=== PATIENT | male | born 1975 | race Caucasian/White ===

== ENCOUNTER 2020-08-07 23:09 | Emergency (ER) | payer MEDICAID ==
[~2020-08-07] VITALS: Ht 170.2 cm; Wt 93.9 kg
[2020-08-07 23:46] LABS: Basophils # (auto) 0.1 10 ^3/uL (0-0.2); Eosinophils # (auto) 0.1 10 ^3/uL (0-0.8); Eosinophils % (auto) 1.6 % (0.0-7.0); Hematocrit 43.5 % (41.0-53.0); Hemoglobin 15.4 g/dL (13.5-17.5); Lymphocytes # (auto) 2.8 10 ^3/uL (0.4-5.4); Lymphocytes % (auto) 32.1 % (10.0-50.0); Mean Corpuscular Hgb Conc. 35.4 g/dL (32.0-36.0); Mean Corpuscular Volume 87.7 fL (80.0-100.0); Monocytes # (auto) 0.6 10 ^3/uL (0-1.3); Monocytes % (auto) 7.3 % (0.0-12.0); Neutrophils # (auto) 5.1 10 ^3/uL (1.6-8.6); Nucleated Red Blood Cells % 0.1 %; Platelet Count (auto) 225 10^3/uL (140-450); Red Blood Cells 4.96 10^6/uL (4.5-5.90); Red Cell Distribution Width 13.2 % (11.8-14.3); White Blood Cell 8.8 10^3/uL (4.4-10.8)
[2020-08-08 00:04] LABS: Alanine Aminotransferase 43 U/L (16-61); Aspartate Aminotransferase 18 U/L (15-37); GFR African American 96 mL/min; GFR Non-African American 79 mL/min; Salicylate 2.2 mg/dL (2.8-20.0)
[2020-08-08 00:05] LABS: Acetaminophen < 2.0 ug/mL (10-30)
[2020-08-08 00:06] LABS: Alkaline Phosphatase 59 U/L (45-117); Anion Gap 11 (5-15); BUN/Creatinine Ratio 18.7; Bilirubin, Total 0.2 mg/dL (0.2-1.0); Blood Urea Nitrogen 20 mg/dL (7-18); Calcium 8.5 mg/dL (8.5-10.1); Carbon Dioxide 25 mmol/L (21-32); Chloride 103 mmol/L (98-107); Glucose 114 mg/dL (74-106); Potassium 3.5 mmol/L (3.5-5.1); Sodium 139 mmol/L (136-145); Total Protein 6.8 g/dL (6.4-8.2)
[2020-08-08 00:07] LABS: Albumin 3.4 g/dL (3.4-5.0); Blood Alcohol < 3.0 mg/dL (0-5)
[2020-08-08 01:02] LABS: Urine Bacteria FEW /hpf (None Seen); Urine Blood 1+ /uL (Negative); Urine Hyaline Cast FEW /lpf (0 - 2); Urine Mucus FEW (None Seen); Urine Specific Gravity 1.027 (1.001-1.035); Urine WBC 15 /hpf (0 - 3)
[2020-08-08 01:12] LABS: Alcohol, Urine < 3.0 mg/dL (0-10); Amphetamine Screen, Urine NEGATIVE (NEGATIVE); Barbiturate Scree,Urine NEGATIVE (NEGATIVE); Benzodiazephine Screen, Urine NEGATIVE (NEGATIVE); Cannabinoid Screen, Urine NEGATIVE (NEGATIVE); Cocaine Screen, Urine NEGATIVE (NEGATIVE); Opiate Scree,Urine NEGATIVE (NEGATIVE); Phencyclidine Screen, Urine NEGATIVE (NEGATIVE)
[2020-08-08 09:00] VITALS: BP 122/80
== END 2020-08-08 09:48 | disposition home or self-care (01) ==
LOC: ER 23:09 → EDBD 23:09 → ER 08-08 09:48
DX: R45.851 Suicidal ideations (principal); N39.0 Urinary tract infection, site not specified; F31.9 Bipolar disorder, unspecified; E78.00 Pure hypercholesterolemia, unspecified; E11.9 Type 2 diabetes mellitus without complications
CPT/HCPCS: 36415; 80053; 80307; 80320; 80329; 81001; 85025; 85049

== ENCOUNTER 2020-12-14 00:03 | Emergency (ER) | payer MEDICAID ==
[~2020-12-14] VITALS: Ht 162.6 cm; Wt 104.3 kg
[2020-12-14 01:24] LABS: Alcohol, Urine < 3.0 mg/dL (0-10); Amphetamine Screen, Urine NEGATIVE (NEGATIVE); Barbiturate Scree,Urine NEGATIVE (NEGATIVE); Benzodiazephine Screen, Urine NEGATIVE (NEGATIVE); Cannabinoid Screen, Urine POSITIVE (NEGATIVE); Cocaine Screen, Urine NEGATIVE (NEGATIVE); Opiate Scree,Urine NEGATIVE (NEGATIVE); Phencyclidine Screen, Urine NEGATIVE (NEGATIVE)
[2020-12-14 03:52] LABS: Basophils # (auto) 0.1 10 ^3/uL (0-0.2); Basophils % (auto) 0.8 % (0.0-2.0); Eosinophils # (auto) 0.1 10 ^3/uL (0-0.8); Eosinophils % (auto) 1.5 % (0.0-7.0); Hematocrit 44.5 % (41.0-53.0); Hemoglobin 15.3 g/dL (13.5-17.5); Lymphocytes # (auto) 3.6 10 ^3/uL (0.4-5.4); Lymphocytes % (auto) 44.2 % (10.0-50.0); Mean Corpuscular Hemoglobin 30.5 pg (28.0-32.0); Mean Corpuscular Hgb Conc. 34.5 g/dL (32.0-36.0); Mean Corpuscular Volume 88.3 fL (80.0-100.0); Monocytes # (auto) 0.7 10 ^3/uL (0-1.3); Monocytes % (auto) 8.9 % (0.0-12.0); Neutrophils # (auto) 3.6 10 ^3/uL (1.6-8.6); Neutrophils % (auto) 44.6 % (37.0-80.0); Nucleated Red Blood Cells % 0.8 %; Red Blood Cells 5.03 10^6/uL (4.5-5.90); Red Cell Distribution Width 12.9 % (11.8-14.3); White Blood Cell 8.2 10^3/uL (4.4-10.8)
[2020-12-14 04:10] LABS: Anion Gap 10 (5-15); BUN/Creatinine Ratio 19.8; Blood Alcohol < 3.0 mg/dL (0-5); Blood Urea Nitrogen 24 mg/dL (7-18); Calcium 8.8 mg/dL (8.5-10.1); Carbon Dioxide 25 mmol/L (21-32); Chloride 99 mmol/L (98-107); GFR African American 83 mL/min; GFR Non-African American 68 mL/min; Glucose 103 mg/dL (74-106); Potassium 3.5 mmol/L (3.5-5.1); Sodium 134 mmol/L (136-145)
[2020-12-14 09:35] VITALS: BP 128/72
== END 2020-12-14 10:14 | disposition home or self-care (01) ==
LOC: EDBD 00:03 → ER 00:03
DX: R45.851 Suicidal ideations (principal); F32.9 Major depressive disorder, single episode, unspecified; F41.9 Anxiety disorder, unspecified; E78.5 Hyperlipidemia, unspecified; E11.9 Type 2 diabetes mellitus without complications
CPT/HCPCS: 36415; 71045; 80048; 80307; 80320; 85025

== ENCOUNTER 2021-01-05 23:04 | Emergency (ER) | payer MEDICAID ==
[~2021-01-05] VITALS: Ht 170.2 cm; Wt 86.2 kg
[2021-01-06 01:31] LABS: Acetaminophen < 2.0 ug/mL (10-30); Albumin 3.4 g/dL (3.4-5.0); Anion Gap 10 (5-15); BUN/Creatinine Ratio 21.2; Blood Alcohol < 3.0 mg/dL (0-5); Blood Urea Nitrogen 18 mg/dL (7-18); Carbon Dioxide 27 mmol/L (21-32); Chloride 101 mmol/L (98-107); GFR African American 124 mL/min; GFR Non-African American 103 mL/min; Glucose 158 mg/dL (74-106); Potassium 3.6 mmol/L (3.5-5.1); Salicylate < 1.7 mg/dL (2.8-20.0); Sodium 138 mmol/L (136-145)
[2021-01-06 01:33] LABS: Alanine Aminotransferase 46 U/L (16-61); Alkaline Phosphatase 68 U/L (45-117); Aspartate Aminotransferase 23 U/L (15-37); Bilirubin, Total 0.2 mg/dL (0.2-1.0); Total Protein 6.9 g/dL (6.4-8.2)
[2021-01-06 01:35] LABS: Basophils # (auto) 0 10 ^3/uL (0-0.2); Basophils % (auto) 0.3 % (0.0-2.0); Eosinophils # (auto) 0.1 10 ^3/uL (0-0.8); Eosinophils % (auto) 1.4 % (0.0-7.0); Hematocrit 44.9 % (41.0-53.0); Hemoglobin 15.8 g/dL (13.5-17.5); Lymphocytes # (auto) 2.8 10 ^3/uL (0.4-5.4); Lymphocytes % (auto) 32.4 % (10.0-50.0); Mean Corpuscular Hemoglobin 30.9 pg (28.0-32.0); Mean Corpuscular Hgb Conc. 35.3 g/dL (32.0-36.0); Mean Corpuscular Volume 87.7 fL (80.0-100.0); Monocytes # (auto) 0.7 10 ^3/uL (0-1.3); Monocytes % (auto) 7.8 % (0.0-12.0); Neutrophils % (auto) 58.1 % (37.0-80.0); Nucleated Red Blood Cells % 0.1 %; Red Blood Cells 5.12 10^6/uL (4.5-5.90); Red Cell Distribution Width 12.9 % (11.8-14.3); White Blood Cell 8.6 10^3/uL (4.4-10.8)
[2021-01-06 08:18] LABS: Urine Bacteria NONE SEEN /hpf (None Seen); Urine Blood Negative /uL (Negative); Urine Specific Gravity 1.016 (1.001-1.035); Urine WBC 2 /hpf (0 - 3)
[2021-01-06 08:23] LABS: Alcohol, Urine < 3.0 mg/dL (0-10); Amphetamine Screen, Urine NEGATIVE (NEGATIVE); Barbiturate Scree,Urine NEGATIVE (NEGATIVE); Benzodiazephine Screen, Urine NEGATIVE (NEGATIVE); Cannabinoid Screen, Urine POSITIVE (NEGATIVE); Cocaine Screen, Urine NEGATIVE (NEGATIVE); Phencyclidine Screen, Urine NEGATIVE (NEGATIVE)
[2021-01-06 09:04] LABS: Opiate Scree,Urine NEGATIVE (NEGATIVE)
[2021-01-06] MEDS ORDERED: hydrOXYzine 25 MG TAB or CAP PO PRN (14:30)
[2021-01-06] MEDS: lamoTRIgine 25 MG TAB PO SCH ×2 (18:04→22:52)
[2021-01-06] MEDS: traZODone HCL 50 MG TAB PO PRN (23:15)
[2021-01-07] MEDS: lamoTRIgine 25 MG TAB PO SCH ×2 (10:00→21:49)
[2021-01-08] MEDS: lamoTRIgine 25 MG TAB PO SCH ×2 (13:01→23:57)
[2021-01-09] MEDS: traZODone HCL 50 MG TAB PO PRN (03:53)
[2021-01-09] MEDS ORDERED: lamoTRIgine 25 MG TAB ONE (10:32)
[2021-01-09] MEDS: lamoTRIgine 25 MG TAB PO SCH ×2 (10:40→22:18)
[2021-01-10] MEDS ORDERED: LORazepam 0.5 MG TAB PO ONE (01:30)
[2021-01-10] MEDS: lamoTRIgine 25 MG TAB PO SCH ×2 (15:40→22:44)
[2021-01-11 08:00] VITALS: BP 127/74
== END 2021-01-11 08:43 | disposition home or self-care (01) ==
LOC: EDBD 23:04 → ER 23:04
DX: R45.851 Suicidal ideations (principal); F32.9 Major depressive disorder, single episode, unspecified; E11.9 Type 2 diabetes mellitus without complications; E78.5 Hyperlipidemia, unspecified; Z88.0 Allergy status to penicillin; Z20.822 Contact with and (suspected) exposure to COVID-19
CPT/HCPCS: 36415; 80053; 80307; 80320; 80329; 81001; 85025; 87426; 93005

== ENCOUNTER 2021-05-12 18:17 | Emergency (ER) | payer MEDICAID ==
[~2021-05-12] VITALS: Ht 30.5 cm; Wt 79.8 kg
[2021-05-12] MEDS ORDERED: LORazepam 0.5 MG TAB PO ONE (19:30)
[2021-05-12 20:21] LABS: Salicylate < 1.7 mg/dL (2.8-20.0)
[2021-05-12 20:23] LABS: Acetaminophen < 2.0 ug/mL (10-30)
[2021-05-13 17:35] LABS: Alcohol, Urine < 3.0 mg/dL (0-10); Amphetamine Screen, Urine NEGATIVE (NEGATIVE); Barbiturate Scree,Urine NEGATIVE (NEGATIVE); Benzodiazephine Screen, Urine NEGATIVE (NEGATIVE); Cannabinoid Screen, Urine NEGATIVE (NEGATIVE); Cocaine Screen, Urine NEGATIVE (NEGATIVE); Opiate Scree,Urine NEGATIVE (NEGATIVE); Phencyclidine Screen, Urine NEGATIVE (NEGATIVE)
[2021-05-14] MEDS ORDERED: LORazepam 0.5 MG TAB PO ONE ×2 (02:00→15:30)
[2021-05-14] MEDS ORDERED: ALPRAZolam 0.5 MG TAB PO ONE (13:30)
[2021-05-14] MEDS ORDERED: NEOMYCIN-BACITRACIN-POLYM 15GM TOP OINT TOP ONE (14:15)
[2021-05-14] MEDS ORDERED: QUEtiapine FUMARATE 25 MG TAB PO ONE (15:30)
[2021-05-14] MEDS ORDERED: HALOPERIDOL LACTATE 5 MG/ML INJ VIAL IM ONE ×3 (18:00→22:30)
[2021-05-14] MEDS ORDERED: diphenhdrAMINE HCL 50 MG/1 ML VL IM ONE (20:00)
[2021-05-14] MEDS ORDERED: LORazepam 2MG/ML-1ML VIAL IM ONE (20:00)
[2021-05-14] MEDS ORDERED: LORazepam 2MG/ML-1ML VIAL ONE (22:16)
[2021-05-14] MEDS ORDERED: HALOPERIDOL LACTATE 5 MG/ML INJ VIAL ONE (22:30)
[2021-05-14] MEDS ORDERED: LORazepam 2MG/ML-1ML VIAL IV ONE (22:30)
[2021-05-15] MEDS ORDERED: LORazepam 0.5 MG TAB PO ONE (09:45)
[2021-05-15] MEDS ORDERED: VENLAFAXINE HCL 37.5MG TABLET PO SCH (10:00)
[2021-05-15] MEDS ORDERED: HALOPERIDOL LACTATE 5 MG/ML INJ VIAL IM ONE (12:00)
[2021-05-15] MEDS: hydrOXYzine 25 MG TAB or CAP PO SCH (15:24)
[2021-05-15] MEDS ORDERED: traZODone HCL 50 MG TAB PO ONE (22:00)
[2021-05-15] MEDS: traZODone HCL 50 MG TAB PO SCH (22:19)
[2021-05-16] MEDS ORDERED: LORazepam 2MG/ML-1ML VIAL ONE ×2 (04:13→10:41)
[2021-05-16] MEDS ORDERED: LORazepam 2MG/ML-1ML VIAL IM ONE ×2 (04:15→10:45)
[2021-05-16] MEDS: VENLAFAXINE HCL 37.5mg XR cap PO SCH (10:00)
[2021-05-16] MEDS: hydrOXYzine 25 MG TAB or CAP PO SCH (10:00)
[2021-05-16] MEDS: traZODone HCL 50 MG TAB PO SCH (22:30)
[2021-05-17 07:42] VITALS: BP 141/88
[2021-05-17] MEDS: VENLAFAXINE HCL 37.5mg XR cap PO SCH (10:06)
[2021-05-17] MEDS: hydrOXYzine 25 MG TAB or CAP PO SCH (10:06)
== END 2021-05-17 10:50 | disposition home or self-care (01) ==
LOC: EDBD 18:17 → ER 18:21
DX: R45.851 Suicidal ideations (principal); F31.9 Bipolar disorder, unspecified; E11.9 Type 2 diabetes mellitus without complications; E78.5 Hyperlipidemia, unspecified; Z88.0 Allergy status to penicillin; Z20.822 Contact with and (suspected) exposure to COVID-19
CPT/HCPCS: 36415; 80307; 80320; 80329; 87426; 96372; 96374; 99285; J1200; J1630; J2060

== ENCOUNTER 2022-08-13 19:37 | Emergency (ER) | payer MEDICAID ==
[~2022-08-13] VITALS: Ht 170.2 cm; Wt 86.3 kg
[2022-08-13] MEDS ORDERED: IBUP-1456 PO (22:10)
[2022-08-13 23:00] VITALS: BP 139/74
== END 2022-08-13 23:00 | disposition home or self-care (01) ==
LOC: ER 19:37 → EDBD 19:37 → ER 23:00
DX: S30.0XXA Contusion of lower back and pelvis, initial encounter (principal); E11.9 Type 2 diabetes mellitus without complications; E78.5 Hyperlipidemia, unspecified; Z88.0 Allergy status to penicillin; W18.2XXA Fall in (into) shower or empty bathtub, initial encounter; Y93.89 Activity, other specified; Y92.89 Other specified places as the place of occurrence of the external cause; Y99.8 Other external cause status
CPT/HCPCS: 72070; 72100

== ENCOUNTER 2023-04-04 22:03 | Emergency (ER) | payer MEDICAID ==
[~2023-04-04] VITALS: Ht 172.7 cm; Wt 115.0 kg
[~2023-04-04 22:03] MED LIST: IBUP-1456 PO
[2023-04-04 23:41] LABS: Basophils # (auto) 0.1 10 ^3/uL (0-0.2); Basophils % (auto) 0.8 % (0.0-2.0); Eosinophils # (auto) 0.1 10 ^3/uL (0-0.8); Eosinophils % (auto) 1.8 % (0.0-7.0); Hemoglobin 16.1 g/dL (13.5-17.5); Lymphocytes # (auto) 2.1 10 ^3/uL (0.4-5.4); Lymphocytes % (auto) 27.7 % (10.0-50.0); Mean Corpuscular Hemoglobin 31.6 pg (28.0-32.0); Mean Corpuscular Hgb Conc. 34.2 g/dL (32.0-36.0); Mean Corpuscular Volume 92.4 fL (80.0-100.0); Monocytes # (auto) 0.8 10 ^3/uL (0-1.3); Monocytes % (auto) 9.8 % (0.0-12.0); Neutrophils # (auto) 4.6 10 ^3/uL (1.6-8.6); Neutrophils % (auto) 59.9 % (37.0-80.0); Nucleated Red Blood Cells % 0.1 %; Red Blood Cells 5.09 10^6/uL (4.5-5.90); Red Cell Distribution Width 14.1 % (11.8-14.3); White Blood Cell 7.7 10^3/uL (4.4-10.8)
[2023-04-04 23:58] LABS: Acetaminophen < 2.0 UG/ML (10.0-20.0); Alanine Aminotransferase 58 U/L (7-40); Albumin 4.6 g/dL (3.2-4.8); Alkaline Phosphatase 60 U/L (46-116); Anion Gap 11 (5-15); Aspartate Aminotransferase 48 U/L (13-40); BUN/Creatinine Ratio 18.9 (10.0-20.0); Blood Alcohol < 3.0 mg/dL (<10); Blood Urea Nitrogen 17 mg/dL (9-23); Calcium 10.1 mg/dL (8.5-10.1); Carbon Dioxide 25 mmol/L (20-30); Chloride 104 mmol/L (98-107); Glucose 121 mg/dL (74-106); Sodium 140 mmol/L (136-145)
[2023-04-04 23:59] LABS: Bilirubin, Total 0.5 mg/dL (0.2-1.0); Total Protein 6.9 g/dL (5.7-8.2)
[2023-04-05] LABS: Salicylate < 3.0 mg/dL (2.8-20.0)
[2023-04-05 00:12] LABS: Lipase 52 U/L (12-53)
[2023-04-05 06:19] VITALS: BP 154/97; PULSE 96; RESP 18; TEMP 98.2; O2SAT 98
[2023-04-05] MEDS: METOCLOPRAMIDE HCL 5MG/ml INJ 2ml VIAL IM ONE (06:36)
[2023-04-05] MEDS: POTASSIUM CHL 20 Meq TABLET PO ONE (06:38)
== END 2023-04-05 14:52 | disposition home or self-care (01) ==
LOC: ER 22:03 → EDBD 22:03 → ER 04-05 14:51
DX: R45.851 Suicidal ideations (principal); E87.6 Hypokalemia; H54.7 Unspecified visual loss; E11.9 Type 2 diabetes mellitus without complications; E78.5 Hyperlipidemia, unspecified; F12.10 Cannabis abuse, uncomplicated; F31.9 Bipolar disorder, unspecified
CPT/HCPCS: 36415; 80053; 80320; 80329; 83690; 85025; 96372; 99285; J2765